=== PATIENT | female | born 1975 | race Caucasian/White ===

== ENCOUNTER 2018-09-09 12:11 | Emergency (ER) | payer OTHER ==
--- OUTSIDE RECORDS SUMMARY | 2018-09-09 12:32 | XMS REPORT | Continuity of Care Document ---
:1975 Author Organization Interface Problems Problem Status Onset Classification Date Comments Source Date Reported Abnormal weight Active 12/19/19 Problem 06/08/2018 Data gain<sup>1</sup> 12 migrated Medical from [employer] on 09/18/14. Fatigue<sup>2</wilkinson Active 12/19/19 Problem 06/08/2018 Data MH p> 12 migrated Medical from [employer] on 09/18/14. Vitamin D Active 12/19/19 Problem 06/08/2018 Data deficiency<sup>4< 12 migrated Medical /sup> from [employer] on 09/18/14. Urinary tract Resolved 07/30/19 Problem 06/08/2018 Data infectious 11 migrated Medical disease<sup>3</wilkinson from [employer] p> [employer] on 11/03/14. Breast cancer Active Problem 06/08/2018 screening Medical Group Hypertension Active Problem 06/08/2018 [facility] Other specified Active Problem 06/08/2018 hypothyroidism Medical Group Obesity due to Active Problem 06/08/2018 excess calories Medical Group Medications Medication Details Route Status Patient Ordering Order Source Instructions Provider Date Hydrochlorothiazide See Active MH 25 MG / Olmesartan Instructi 018 Medical medoxomil 40 MG Oral ons, TAKE Group Tablet 1 TABLET BY MOUTH DAILY, # 30 tab, 0 Refill(s) , Pharmacy: [facility]/pharm acy #[id number] Hydrochlorothiazide See Active MH 25 MG / Olmesartan Instructi 018 Medical medoxomil 40 MG Oral ons, # 30 Group Tablet tab, TAKE 1 TABLET BY MOUTH DAILY, Pharmacy: [facility]/pharm acy #[id number] Hydrochlorothiazide See Active MH 25 MG / Olmesartan Instructi 018 Medical medoxomil 40 MG Oral ons, # 30 Group Tablet tab, TAKE 1 TABLET BY MOUTH DAILY, Pharmacy: [facility]/pharm acy #[id number] Hydrochlorothiazide 1 tab, Active MH 25 MG / Olmesartan PO, 018 Medical medoxomil 40 MG Oral Daily, # Group Tablet [Benicar HCT 30 tab, 0 40/25] Refill(s) , Pharmacy: [facility] #[id number] Allergies, Adverse Reactions, Alerts Substance Category Reaction Severity Reaction Status Date Comments Source type Reported sulfa Assertion Drug Active Data drugs<sup>1 allergy 1 migrated Medical </sup> from [employer] on 11/16/14. Originally documented as SULFA. codeine<sup Assertion Drug Active Data MH >2</sup> allergy 1 migrated Medical from [employer] on 06/20/15. Originally documented as CODEINE. Immunizations Immunization Date Site Status Last Comments Source Given Updated tetanus-diphther Left completed GE Result Medical ia 2 Deltoid Comment: Group toxoids<sup>1</s adacel. up> Migrated from OBS ; Data migrated from [employer] on 05/22/2015. Results Order Results Value Reference Date Interpretation Comments Source Name Range Vital Signs Vital Sign Value Date Comments Source Encounters Location Location Encounter Encounter Reason Attending ADM DC Status Source Details Type Number For Provider Date Date Visit Outpatient [id number] SAIMA 01/21 Active [facility] [place] [facility] [id number] SAIMA 06/09 [facility] [place] [facility] [id number] SAIMA 02/21 [facility] [place] [facility] [id number] SAIMA 08/05 [facility] [place] [facility] [id number] SAIMA 01/12 [facility] Phone [id number] 07/30 08/01 Primary Message /[facility] [place] [facility] Phone [id number] 09/01 09/03 Primary Message /2017 [facility] [place] [facility] Phone [id number] 09/21 09/23 Primary Message /2017 [facility] [place] [facility] Phone [id number] 10/07 10/09 Primary Message /2017 [facility] [place] [facility] Phone [id number] 11/18 11/20 Primary Message /2017 [facility] [place] Procedures Procedure Code Date Perfomer Comments Source Hysterectomy [id number] 04/20/2007 Medical Group
--- OUTSIDE RECORDS SUMMARY | 2018-09-09 12:32 | XMS REPORT | Summary of Care ---
:1975 Author Organization [facility] [place] Address [address] [place] [address]- Encounter HQ Cheryl_alejandro(FIN) [id number] Date(s): 09/01/17 - 09/02/17 [facility] [place] [address] [place] [address] [phone] Vital Signs No data available for this section Problem List Condition Effective Dates Status Health Status Informant Abnormal weight gain1 12/19/11 Active Breast cancer screening(Confirmed) Active Fatigue2 12/19/11 Active Hypertension(Confirmed) Active Other specified Active hypothyroidism(Confirmed) Obesity due to excess Active calories(Confirmed) Urinary tract infectious disease3 07/29/10 Resolved Vitamin D deficiency4 12/19/11 Active 1Data migrated from [employer] on 09/18/14.2Data migrated from [employer] on 09/18/14.3Data migrated from [employer] on 11/03/14.4Data migrated from [employer] on 09/18/14. Allergies, Adverse Reactions, Alerts Substance Reaction Severity Status sulfa drugs1 Active codeine2 Active 1Data migrated from [employer] on 11/16/14. Originally documented as SULFA.2Data migrated from [employer] on 06/20/15. Originally documented as CODEINE. Medications hydrochlorothiazide-olmesartan 25 mg-40 mg oral tablet See Instructions, # 30 tab, TAKE 1 TABLET BY MOUTH DAILY, Pharmacy: [facility]/ pharmacy #[id number] Start Date: 09/01/17 Status: Ordered Results No data available for this section Immunizations Given and Recorded Vaccine Date Status Refusal Reason tetanus-diphtheria toxoids1 12/19/11 Given 1Result Comment: adacel. Migrated from OBS ; Data migrated from [employer] on 05/22/2015. Procedures Procedure Date Related Diagnosis Body Site Status Hysterectomy 04/20/07 Completed Social History Social History Type Response Substance Abuse Use: None. 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 Operates hazardous equipment: No. Alcohol Current, Frequency: 1-2 times per month. 2 Drinks/Episode average. Smoking Status Never smoker; Exposure to Tobacco Smoke None; Cigarette Smoking Last 365 Days No; Reg Smoking Cessation Counseling No entered on: 01/12/17 Assessment and Plan No data available for this section
--- OUTSIDE RECORDS SUMMARY | 2018-09-09 12:32 | XMS REPORT | Summary of Care ---
:1975 Author Organization [facility] [place] Address [address] [place] [address]- Encounter HQ Cheryl_alejandro(FIN) [id number] Date(s): 11/18/17 - 11/19/17 [facility] [place] [address] [place] [address] [phone] Vital Signs No data available for this [...] 25 mg-40 mg oral tablet See Instructions, TAKE 1 TABLET BY MOUTH DAILY, # 30 tab, 0 Refill(s), Pharmacy : [facility]/pharmacy #[id number] Start Date: 11/18/17 Status: Ordered Results No data available for this section Immunizations Given and Recorded Vaccine Date Status Refusal Reason tetanus-diphtheria toxoids1 12/19/11 Given 1Result Comment: adacel. Migrated from OBS ; Data migrated from [employer] on 05/22/2015. Procedures Procedure Date Related Diagnosis Body Site Status Hysterectomy 04/20/07 Completed Social History Social History Type Response Substance Abuse Use: None. 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 Operates hazardous equipment: No. Alcohol Current, Frequency: 1-2 times per month. 2 Drinks/Episode average. Smoking Status Never smoker; Exposure to Tobacco Smoke None; Cigarette Smoking Last 365 Days No; Reg Smoking Cessation Counseling No entered on: 01/12/17 Assessment and Plan No data available for this section
--- OUTSIDE RECORDS SUMMARY | 2018-09-09 12:32 | XMS REPORT | Summary of Care ---
:1975 Author Organization [facility] [place] Address [address] [place] [address]- Encounter HQ Cheryl_alejandro(FIN) [id number] Date(s): 10/07/17 - 10/08/17 [facility] [place] [address] [place] [address] [phone] Vital Signs No data available for this [...] TAKE 1 TABLET BY MOUTH DAILY, Pharmacy: [facility]/ pharmacy #[id number] Start Date: 10/07/17 Status: Ordered Results No data available for this section Immunizations Given and Recorded Vaccine Date Status Refusal Reason tetanus-diphtheria toxoids1 12/19/11 Given 1Result Comment: adacel. Migrated from OBS ; Data migrated from [employer] on 05/22/2015. Procedures Procedure Date Related Diagnosis Body Site Status Hysterectomy 04/20/07 Completed Social History Social History Type Response Substance Abuse Use: None. 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 Operates hazardous equipment: No. Alcohol Current, Frequency: 1-2 times per month. 2 Drinks/Episode average. Smoking Status Never smoker; Exposure to Tobacco Smoke None; Cigarette Smoking Last 365 Days No; Reg Smoking Cessation Counseling No entered on: 01/12/17 Assessment and Plan No data available for this section
--- OUTSIDE RECORDS SUMMARY | 2018-09-09 12:32 | XMS REPORT | Summary of Care ---
:1975 Author Organization [facility] [place] Address [address] [place] [address]- Encounter HQ Cheryl_alejandro(FIN) [id number] Date(s): 07/30/17 - 07/31/17 [facility] [place] [address] [place] [address] [phone] Vital Signs No data available for this [...] on 06/20/15. Originally documented as CODEINE. Medications Benicar HCT 25 mg-40 mg oral tablet 1 tab, PO, Daily, # 30 tab, 0 Refill(s), Pharmacy: [facility]/pharmacy #[id number] Start Date: 07/30/17 Status: Ordered Results No data available for this section Immunizations Given and Recorded Vaccine Date Status Refusal Reason tetanus-diphtheria toxoids1 12/19/11 Given 1Result Comment: adacel. Migrated from OBS ; Data migrated from [employer] on 05/22/2015. Procedures Procedure Date Related Diagnosis Body Site Status Hysterectomy 04/20/07 Completed Social History Social History Type Response Substance Abuse Use: None. 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 Operates hazardous equipment: No. Alcohol Current, Frequency: 1-2 times per month. 2 Drinks/Episode average. Smoking Status Never smoker; Exposure to Tobacco Smoke None; Cigarette Smoking Last 365 Days No; Reg Smoking Cessation Counseling No entered on: 01/12/17 Assessment and Plan No data available for this section
--- OUTSIDE RECORDS SUMMARY | 2018-09-09 12:32 | XMS REPORT | Summary of Care ---
:1975 Author Organization [facility] [place] Address [address] [place] [address]- Encounter HQ Cheryl_alejandro(FIN) [id number] Date(s): 09/21/17 - 09/22/17 [facility] [place] [address] [place] [phone] Vital Signs No data available for this [...] on 06/20/15. Originally documented as CODEINE. Medications No data available for this section Results No data available for this section Immunizations Given and Recorded Vaccine Date Status Refusal Reason tetanus-diphtheria toxoids1 12/19/11 Given 1Result Comment: adacel. Migrated from OBS ; Data migrated from [employer] on 05/22/2015. Procedures Procedure Date Related Diagnosis Body Site Status Hysterectomy 04/20/07 Completed Social History Social History Type Response Substance Abuse Use: None. 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 Operates hazardous equipment: No. Alcohol Current, Frequency: 1-2 times per month. 2 Drinks/Episode average. Smoking Status Never smoker; Exposure to Tobacco Smoke None; Cigarette Smoking Last 365 Days No; Reg Smoking Cessation Counseling No entered on: 01/12/17 Assessment and Plan No data available for this section
--- NOTE | 2018-09-09 13:54 | RAD REPORT ---
EXAM DESCRIPTION: RAD - Wrist Right 3 View - 09/09/2018 1:24 pm CLINICAL HISTORY: Right wrist pain following trauma COMPARISON: None. FINDINGS: No fracture is identified. Appearance of the scaphoid not outside of normal range. There i s no dislocation or periosteal reaction noted. Epiphyses and growth plates are Normal in appearance. No foreign body or other soft tissue abnormality. IMPRESSION: Negative right wrist examination.
[2018-09-09] MEDS ORDERED: IBUPROFEN 200 MG TAB PO ONE (13:57)
--- NOTE | 2018-09-09 14:15 | ER ---
Nurse's Notes [facility] Name: Mayelin Vicente Age: 43 yrs Sex: Female : 1975 Arrival Date: 09/09/2018 Time: 12:15 Bed 12 Private MD: Diagnosis: Other and unspecified sprain of wrist Presentation: 09/09 12:27 Presenting complaint: Patient states: I knocked real hard a wooden door on the outside tw2 of my RIGHT hand and it hurts down into my wrist. Transition of care: patient was not received from another setting of care. Onset of symptoms was September 09, 2018. Risk Assessment: Do you want to hurt yourself or someone else? Patient reports no desire to harm self or others. Initial Sepsis Screen: Does the patient meet any 2 criteria? No. Patient's initial sepsis screen is negative. Does the patient have a suspected source of infection? No. Patient's initial sepsis screen is negative. Care prior to arrival: None. 12:27 Method Of Arrival: Ambulatory tw2 12:27 Acuity: DIYA 4 tw2 Triage Assessment: 12:28 General: Appears in no apparent distress. obese, well groomed, Behavior is calm, tw2 cooperative, appropriate for age. Pain: Complains of pain in right hand. Musculoskeletal: Circulation, motion, and sensation intact. Range of motion: intact in all extremities, Swelling present in right hand. Injury Description: pt hit a wooden door. 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 - Social history:: Smoking status: . - Ebola Screening: : Patient denies travel to an Ebola-affected area in the 21 days before illness onset. Screenin:33 Abuse screen: Denies threats or abuse. Denies injuries from another. Nutritional ss screening: No deficits noted. Tuberculosis screening: Never had TB. Fall Risk None identified. Assessment: 13:00 General: Appears in no apparent distress. comfortable, Behavior is calm, cooperative. ss Pain: Complains of pain in right hand Pain currently is 10 out of 10 on a pain scale. Quality of pain is described as tender. Neuro: Level of Consciousness is awake, alert, obeys commands, Oriented to person, place, time, situation. Cardiovascular: Pulses are palpable in right radial artery and left radial artery. Respiratory: Airway is patent Respiratory effort is even, unlabored, Respiratory pattern is regular, symmetrical. Derm: Skin is intact, is healthy with good turgor, Skin is dry, Skin is pink, warm \\T\\ dry. normal. Musculoskeletal: Circulation, motion, and sensation intact. Range of motion: intact in all extremities, Swelling absent. 13:33 Reassessment: Patient appears in no apparent distress at this time. Patient and/or ss family updated on plan of care and expected duration. Pain level reassessed. Patient is alert, oriented x 3, equal unlabored respirations, skin warm/dry/pink. awaiting X-RAY results. Vital Signs: 12:29 BP 122 / 74; Pulse 63; Resp 17; Temp 98.4(TE); Pulse Ox 97% on R/A; Pain 10/10; tw2 12:29 "when i move it" tw2 ED Course: 12:15 Patient arrived in ED. rg4 12:28 Triage completed. tw2 12:28 Arm band placed on. tw2 12:34 Renato Alejandre PA is PHCP. [facility] 12:34 Pj Delacruz MD is Attending Physician. [facility] 13:23 X-ray completed. Portable x-ray completed in exam room. Patient tolerated procedure sw well. 13:25 Wrist Right 3 View XRAY In Process Unspecified. EDMS 13:33 Sofia Zhou, LAMAR is Primary Nurse. ss 13:33 Patient has correct armband on for positive identification. Bed in low position. Call ss light in reach. 13:33 No provider procedures requiring assistance completed. Patient did not have IV access ss during this emergency room visit. 14:15 Shimon Urena MD is Referral Physician. m Administered Medications: 13:45 Drug: Motrin 600 mg Route: PO; ss 14:08 Follow up: Response: No adverse reaction tw2 14:14 Follow up: Response: No adverse reaction; Medication administered at discharge. Outcome: 14:15 Discharge ordered by . shira 14:15 Discharged to home ambulatory. 14:15 Condition: good 14:15 Discharge instructions given to patient, Instructed on discharge instructions, follow up and referral plans. medication usage, Demonstrated understanding of instructions, follow-up care, medications, Prescriptions given X 1. 14:16 Patient left the ED. Signatures: Dispatcher [employer] EDMS Renato Alejandre PA PA jmm Smirch, Shelby, RN RN Barbra Bean Tara RN RN tw2 Sri Sanz rg4
--- NOTE | 2018-09-09 14:16 | EDPHYS ---
Physician Documentation [facility] Name: Mayelin Vicente Age: 43 yrs Sex: Female : 1975 Arrival Date: 09/09/2018 Time: 12:15 Bed 12 Private MD: ED Physician Pj Delacruz HPI: 09/09 12:42 This 43 yrs old Female presents to ER via Ambulatory with complaints of Wrist jmm Injury. 12:42 The patient or guardian reports injury, pain. Onset: The symptoms/episode jmm began/occurred acutely, just prior to arrival. Modifying factors: The symptoms are alleviated by holding still, the symptoms are aggravated by movement. Associated signs and symptoms: Pertinent negatives: cyanosis distally, decreased sensation distally, nausea, numbness distally, tingling distally. This is a 43 year old female with no chronic medical conditions that presents to the ED with complaints of right wrist pain. patient injured her wrist when she slammed her fist against a door to knock. Patient states she then felt a pop. Patient denies other injury. . 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 - Social history:: Smoking status: . - Ebola Screening: : Patient denies travel to an Ebola-affected area in the 21 days before illness onset. ROS: 12:42 Constitutional: Negative for fever, chills, and weight loss, Cardiovascular: Negative jmm for chest pain, palpitations, and edema, Respiratory: Negative for shortness of breath, cough, wheezing, and pleuritic chest pain. 12:42 MS/extremity: Positive for injury or acute deformity, pain, swelling. 12:42 All other systems are negative. Exam: 12:42 Constitutional: This is a well developed, well nourished patient who is awake, alert, jmm and in no acute distress. Head/Face: atraumatic. Eyes: EOMI, no conjunctival erythema appreciated ENT: Moist Mucus Membranes Neck: Trachea midline, Supple Chest/axilla: Normal chest wall appearance and motion. Cardiovascular: Regular rate and rhythm. No edema appreciated Respiratory: Normal respirations, no respiratory distress appreciated Abdomen/GI: Non distended, soft Back: Normal ROM Skin: General appearance color normal MS/ Extremity: Moves all extremities, no obvious deformities appreciated, no edema noted to the lower extremities Neuro: Awake and alert, normal gait Psych: Behavior is normal, Mood is normal, Patient is cooperative and pleasant 12:42 Musculoskeletal/extremity: pain is elicited on palpation of the ulnar side of the right wrist, no snuff box tenderness, full radial pulse, painful flexion and extension appreciated, compartments are soft, NVI. 12:42 Skin: Appearance: Color: normal in color. 12:42 Neuro: Orientation: is normal, Mentation: is normal, Memory: is normal. 12:42 Psych: Behavior/mood is pleasant, cooperative. Vital Signs: 12:29 BP 122 / 74; Pulse 63; Resp 17; Temp 98.4(TE); Pulse Ox 97% on R/A; Pain 10/10; tw2 12:29 "when i move it" tw2 MDM: 12:42 Patient medically screened. [facility] 14:15 Data reviewed: vital signs, nurses notes. Counseling: I had a detailed discussion with sihra the patient and/or guardian regarding: the historical points, exam findings, and any diagnostic results supporting the discharge/admit diagnosis, radiology results, the need for outpatient follow up, to return to the emergency department if symptoms worsen or persist or if there are any questions or concerns that arise at home. 14:15 ED course: X-ray negative. Patient advised to follow up with ortho for reevaluation. [facility] patient understood and agrees with the plan of care. . 09/09 12:43 Order name: Wrist Right 3 View XRAY; Complete Time: 14:05 [facility] 09/09 14:05 Order name: Wrist Splint; Complete Time: 14:07 [facility] Administered Medications: 13:45 Drug: Motrin 600 mg Route: PO; ss 14:08 Follow up: Response: No adverse reaction tw2 14:14 Follow up: Response: No adverse reaction; Medication administered at discharge. Disposition: 09/10 09:12 Co-signature as Attending Physician, Pj Delacruz MD I agree with the assessment and kdr plan of care. Disposition: 09/09/18 14:15 Discharged to Home. Impression: Other and unspecified sprain of wrist. - Condition is Stable. - Discharge Instructions: Wrist Sprain. - Prescriptions for Ibuprofen 800 mg Oral Tablet - take 1 tablet by ORAL route every 8 hours As needed take with food; 30 tablet. - Medication Reconciliation Form, Thank You Letter, Antibiotic Education, Prescription Opioid Use form. - Follow up: Shimon Urena MD; When: 2 - 3 days; Reason: Recheck today's complaints, Continuance of care, Re-evaluation by your physician. Signatures: Dispatcher [employer] EDMS Pj Delacruz MD MD kdr Mickail, Joel, PA PA jmm Smirch, Shelby, LAMAR RN Nely Ibanez RN RN tw2 Corrections: (The following items were deleted from the chart) 09/09 14:16 14:15 09/09/2018 14:15 Discharged to Home. Impression: Other and unspecified sprain of ss wrist. Condition is Stable. Forms are Medication Reconciliation Form, Thank You Letter, Antibiotic Education, Prescription Opioid Use. Follow up: Shimon Urena; When: 2 - 3 days; Reason: Recheck today's complaints, Continuance of care, Re-evaluation by your physician. shira
== END 2018-09-09 14:16 | disposition home or self-care (01) ==
LOC: ER 12:11
DX: S63.591A Other specified sprain of right wrist, initial encounter (principal); W22.8XXA Striking against or struck by other objects, initial encounter; Y93.89 Activity, other specified; Y92.9 Unspecified place or not applicable; Z88.2 Allergy status to sulfonamides
CPT/HCPCS: 99283